=== PATIENT | male | born 1945 | race Caucasian/White ===

== ENCOUNTER 2017-12-08 12:10 | Emergency (ER) | payer MEDICARE ==
[~2017-12-08] VITALS: Ht 170.2 cm; Wt 83.0 kg
[2017-12-08 12:25] VITALS: BP 118/75
== END 2017-12-08 13:28 | disposition home or self-care (01) ==
LOC: ED 13:00
DX: L03.211 Cellulitis of face (principal); K02.9 Dental caries, unspecified
CPT/HCPCS: 99283